=== PATIENT | female | born 1965 | race Caucasian/White ===

== ENCOUNTER 2017-06-07 20:13 | Emergency (ER) | payer BC ==
[~2017-06-07] VITALS: Ht 165.1 cm; Wt 98.5 kg
[2017-06-07] MEDS ORDERED: PLEASE ENTER ALLERGIES MC SCH (20:30)
[2017-06-07] MEDS ORDERED: SODIUM CHLORIDE FLUSH 10ML SYR IVF ONE ×2 (20:30→21:00)
[2017-06-07 21:00] LABS: BASOPHILS # (AUTO) 0.25 x10^3/uL (0-0.1); BASOPHILS % (AUTO) 2 % (0-1); EOSINOPHILS # (AUTO) 0.15 x10^3/uL (0-0.4); EOSINOPHILS % (AUTO) 1 % (1-7); LYMPHOCYTES # (AUTO) 2.03 x10^3/uL (1-3.4); LYMPHOCYTES % (AUTO) 19 % (22-44); MD NO; MEAN CORPUSCULAR HGB CONC 33.8 g/dL (32.4-35.8); MEAN CORPUSCULAR VOLUME 91.7 fL (80-100); MEAN PLATELET VOLUME 7.7 fL (7.4-10.4); MONOCYTES # (AUTO) 0.57 x10^3/uL (0.2-0.8); MONOCYTES % (AUTO) 5 % (2-9); NEUTROPHILS # (AUTO) 7.61 x10^3/uL (1.8-6.8); NEUTROPHILS % (AUTO) 72 % (42-75); PLATELET COUNT 225 x10^3/uL (130-400); RED BLOOD COUNT 4.53 x10^6/uL (3.82-5.3); RED CELL DISTRIBUTION WIDTH 14.3 % (9.6-15.2)
[2017-06-07] MEDS ORDERED: FENTANYL PF 100 MCG/2ML IVPush PRN (21:00)
[2017-06-07] MEDS ORDERED: ONDANSETRON ODT 4 MG PO ONE (21:00)
[2017-06-07] MEDS ORDERED: ONDANSETRON ODT 4 MG ONE (21:02)
[2017-06-07] MEDS ORDERED: FENTANYL PF 100 MCG/2ML ONE (21:02)
[2017-06-07 21:11] LABS: ALANINE AMINOTRANSFERASE 43 U/L (12-78); ALBUMIN 3.9 g/dL (3.4-5.0); ANION GAP 9 mmol/L (5-15); CALCIUM 8.6 mg/dL (8.5-10.1); CHLORIDE 110 mmol/L (98-107); CREATININE 0.91 mg/dL (0.55-1.02)
[2017-06-07 21:13] LABS: ALKALINE PHOSPHATASE 75 U/L (45-117); BILIRUBIN,TOTAL 0.6 mg/dL (0.2-1.0); TOTAL PROTEIN 7.5 g/dL (6.4-8.2)
[2017-06-07] MEDS ORDERED: CETI-158 PO (21:15)
[2017-06-07] MEDS ORDERED: ASPI-650 PO (21:15)
[2017-06-07] MEDS ORDERED: PARO10TA3 PO (21:15)
[2017-06-07] MEDS ORDERED: VALA500T PO (21:15)
[2017-06-07] MEDS ORDERED: CAL1TABL10 PO (21:15)
[2017-06-07] MEDS ORDERED: FOLI20CA PO (21:15)
[2017-06-07] MEDS ORDERED: CHOL500015 PO (21:15)
[2017-06-07] MEDS ORDERED: CA C1TAB35 PO (21:15)
[2017-06-07 22:36] LABS: MICROSCOPIC NOT IND
[2017-06-07 22:41] LABS: CULTURE INDICATED? NO
[2017-06-07] MEDS ORDERED: OMNIPAQUE 350 MG/ML, 100ML BOTTLE ONE (23:34)
[2017-06-08 00:01] VITALS: BP 134/74
== END 2017-06-08 00:09 | disposition home or self-care (01) ==
LOC: ED 23:50
DX: R10.31 Right lower quadrant pain (principal); R16.1 Splenomegaly, not elsewhere classified; R10.11 Right upper quadrant pain
CPT/HCPCS: 36415; 74177; 80053; 81003; 85025; 99285; Q9967